=== PATIENT | female | born 1980 | race Caucasian/White ===

== ENCOUNTER → 2019-12-13 12:52 | Outpatient (CLI) | payer OTHER, SELFPAY ==
--- NOTE | 2019-12-13 | DI.MRI.S_ITS ---
PROCEDURE: MR CERVICAL SPINE WO CON INDICATIONS: Mononeuropathy TECHNIQUE: Noncontrast sagittal T1 spin echo and T2 fast spin echo, sagittal STIR, foraminal oblique sagittal T2 fast spin echo, and axial gradient echo or T2 fast spin echo through the cervical spine. COMPARISON: None. FINDINGS: Image quality: Mildly degraded by patient motion artifact. Alignment and Curvature: There is normal bony alignment. Bone Marrow: Marrow demonstrates normal overall signal. Spinal Cord: Focus of increased T2 signal noted in the dorsal and right lateral margin of the cervical spinal cord below the C3 vertebral body. No significant mass effect is associated with the signal abnormality in the spinal cord probably C3 vertebral body.. No cerebellar tonsillar herniation. Paraspinous Soft Tissues: No paravertebral masses. Prevertebral soft tissues are normal in thickness. C2-C3: Loss of disc signal. Minimal, diffuse disc bulge. No central stenosis. No neural foraminal narrowing. No neural compression. C3-C4: Loss of the signal. Mild, diffuse disc bulge. Moderate narrowing of the central canal. Mild bilateral neural foraminal narrowing. No neural compression. C4-C5: Loss of disc signal and height. Moderate, diffuse disc bulge with severe narrowing of the central canal with compression of the cervical spinal cord. Mild right and moderate left uncovertebral joint hypertrophy. Severe right and moderate left neural foraminal narrowing with compression of the exiting right C5 nerve root. C5-C6: Loss of disc signal and height. Moderate, diffuse disc bulge. Small central disc protrusion. Severe narrowing of the central canal with marked compression of the cervical spinal cord. Moderate right and mild left uncovertebral joint hypertrophy. Severe right and moderate left neural foraminal narrowing with compression of the exiting right C6 nerve root. C6-C7: Loss of disc signal and height. Moderate, diffuse disc bulge. Severe narrowing of the central canal with compression of the cervical spinal cord. Moderate right and mild left uncovertebral joint hypertrophy. Severe right and moderate left neural foraminal narrowing with compression of the exiting right C7 nerve root. C7-T1: Normal appearance. IMPRESSION: 1. Multilevel degenerative disease 2. Multilevel uncovertebral arthropathy 3. Severe C4-C5 and C5-C6 and C6-C7 central canal narrowing with compression of the cervical spinal cord. 4. Severe right C4-C5, C5-C6 and C6-C7 neural foraminal narrowing with compression of the bilateral exiting C5, C6 and C7 nerve roots. 5. Increased T2 signal in the cervical spinal cord level the C3 vertebral body which could represent edema related to severe central canal stenosis and spinal cord compression, demyelinating process such as multiple sclerosis or less likely spinal cord infarct. Dictated by: Estrella Wu MD, PhD on 12/13/2019 at 15:04 Approved by: Estrella Wu MD, PhD on 12/13/2019 at 16:06
== END ==
PROVIDERS: PCP Family Medicine; Referring Provider Family Medicine; Visit Provider Family Medicine
DX: G58.9 Mononeuropathy, unspecified (principal); M50.11 Cervical disc disorder with radiculopathy, high cervical region; M50.01 Cervical disc disorder with myelopathy, high cervical region; M47.12 Other spondylosis with myelopathy, cervical region; M47.22 Other spondylosis with radiculopathy, cervical region; M48.02 Spinal stenosis, cervical region
CPT/HCPCS: 72141